=== PATIENT | male | born 1940 | race Hispanic/Latino ===

== ENCOUNTER 2020-01-08 16:25 | Inpatient (IN) | payer MEDICARE, OTHER ==
[~2020-01-08] VITALS: Ht 165.1 cm; Wt 90.3 kg
[2020-01-08] MEDS: SODIUM CHLORIDE 0.9% 1000ML 1,000 ML IV SCH (00:15)
[2020-01-08] MEDS ORDERED: ONDANSETRON HCL INJ 2MG/ML 2ML 2 MG/ML VIAL IV PRN ×2 (17:15→19:45)
[2020-01-08] MEDS ORDERED: MORPHINE SULFATE 2 MG/ML SYR 1ML IV PRN (17:15)
[2020-01-08] MEDS ORDERED: SODIUM CHLORIDE 0.9% 1000ML 1,000 ML IV SCH (17:15)
[2020-01-08 17:19] LABS: BASOPHILS % 0.3 % (0.0-1.0); EOSINOPHILS # (AUTO) 0.5 (0.0-0.4); EOSINOPHILS % 3.5 % (0.0-6.0); HEMATOCRIT 32.9 % (38.2-49.6); HEMOGLOBIN 10.6 g/dL (14.0-18.0); LYMPHOCYTES # (AUTO) 0.5 (1.0-3.2); LYMPHOCYTES % 3.5 % (18.0-39.1); MEAN CORPUSCULAR HEMOGLOBIN 26.6 pg (28-32); MEAN CORPUSCULAR HGB CONC 32.2 g/dL (31-35); MEAN CORPUSCULAR VOLUME 82.5 fL (81-99); MONOCYTES # (AUTO) 0.8 (0.2-0.8); MONOCYTES % 5.9 % (4.4-11.3); NEUTROPHILS # (AUTO) 12.1 (2.1-6.9); NEUTROPHILS % 86.3 % (38.7-80.0); PLATELET COUNT 315 x10e3/uL (140-360); RED BLOOD COUNT 3.99 x10e6/uL (4.3-5.7); RED CELL DISTRIBUTION WIDTH 14.7 % (11.7-14.4)
[2020-01-08 17:30] LABS: INR 1.05; PROTHROMBIN TIME 14.4 seconds (11.9-14.5)
[2020-01-08 17:40] LABS: ALBUMIN 3.2 g/dL (3.5-5.0); ANION GAP 15.9 mmol/L (8-16); CALCIUM 9.5 mg/dL (8.4-10.2); CREATININE, SERUM 2.32 mg/dL (0.72-1.25)
[2020-01-08 17:41] LABS: CHOL/HDL RATIO 3.2 (3.9-4.7)
[2020-01-08 17:43] LABS: POTASSIUM 5.9 mmol/L (3.5-5.1)
[2020-01-08 18:01] LABS: THYROID STIMULATING HORMONE 1.534 uIU/mL (0.350-4.940)
[2020-01-08] MEDS: CEFTRIAXONE SOD 1 GM/NS 50 ML 50 ML IV SCH (18:04)
[2020-01-08] MEDS ORDERED: MORPHINE SULFATE INJ 4 MG/ML INJ 1ML IV PRN (18:15)
--- NOTE | 2020-01-08 18:20 | Diagnostic Imaging Report ---
EXAMINATION: CHEST 2 VIEWS COMPARISON: None INDICATION: ^SWELLING ^[id number] ^1743 ^Y DISCUSSION: HEART AND MEDIASTINUM: The cardiomediastinal silhouette is unremarkable. LINES: None. LUNGS/PLEURA: Mild hyperinflation suggestive of small airways disease. There is a moderate-sized left pleural effusion tracking superiorly suggestive of chronicity. No mass or infiltrate in the aerated lung. BONES AND SOFT TISSUES: Degenerative changes of the thoracic spine. No focal osseous lesion. The soft tissues are normal. IMPRESSION: Moderate sized left pleural effusion may be chronic. No pulmonary infiltrates. Signed by: Dr. Olga Samano MD on 01/08/2020 6:17 PM
--- NOTE | 2020-01-08 18:24 | Diagnostic Imaging Report ---
Right complete knee. CPT CODE: 21331. INDICATION: ^SWELLING ^[id number] ^1743 ^Y COMPARISON: None FINDINGS: No evidence of acute fracture or dislocation. Mild medial compartment narrowing and prominence of the tibial spines. Trace chondrocalcinosis of the medial lateral menisci. No joint effusion. Large traction enthesophytes arising from the superior patellar pole and the anterior tibia. There are calcifications of the prepatellar bursa and the infrapatellar bursa. Diffuse arterial calcifications. IMPRESSION: No acute traumatic pathology. Degenerative changes and bursal calcifications as described above. Signed by: Dr. Olga Samano MD on 01/08/2020 6:20 PM
--- NOTE | 2020-01-08 18:28 | Diagnostic Imaging Report ---
Foot complete CPT code: 05911 Indication: Cellulitis/gout ^SWELLING ^[id number] ^1743 ^Y Technique: A.P., oblique and lateral views of the right foot obtained. Comparison: None Findings: The area of pain is at the great toe. The bones are diffusely demineralized. Calcaneus is intact with small posterior and plantar spurs. The midfoot is intact. No evidence of displaced fracture or dislocation involving any of the digits.There is soft tissue swelling at the IP joint of the great toe. Sharply marginated erosion at the medial base of the proximal phalanx of the great toe. No radiopaque foreign body. There are diffuse calcifications of the arterial structures. IMPRESSION: 1. Soft tissue swelling at the MTP of the great toe with sharply marginated erosion of the proximal phalanx of the great toe may be secondary to gout. 2. Diffuse vascular calcifications. No acute fracture or dislocation. Signed by: Dr. Olga Samano MD on 01/08/2020 6:24 PM
[2020-01-08] MEDS ORDERED: DOCUSATE SODIUM 100 MG CAP PO PRN (19:45)
[2020-01-08] MEDS ORDERED: ACETAMINOPHEN 325 MG TAB PO PRN (19:45)
[2020-01-08] MEDS ORDERED: BENZONATATE 100 MG CAP PO PRN (19:45)
[2020-01-08] MEDS ORDERED: HYDROCODONE/APAP 5MG-325MG TAB PO PRN (19:45)
[2020-01-08] MEDS ORDERED: MELATONIN 5 MG TABLET PO PRN (19:45)
[2020-01-08 20:00] VITALS: BP 149/52
[2020-01-08] MEDS ORDERED: FUROSEMIDE INJ 10 MG/ML 4 ML VIAL IV ONE (20:00)
[2020-01-08] MEDS: FUROSEMIDE INJ 10 MG/ML 4 ML VIAL IV SCH (20:44)
[2020-01-08] MEDS ORDERED: SOD POLYSTYRENE SULFONATE SUSP 15 GM/60 ML BTL PO SCH (20:45)
[2020-01-08] MEDS ORDERED: VANCOMYCIN 1GM/NS 250 ML 250 ML IV ONE (20:45)
[2020-01-08 20:57] VITALS: BP_SYST 149; BP_SYST 176; BP_DIAS 52; BP_DIAS 62
[2020-01-08] MEDS ORDERED: DEXTROSE 50% SYRINGE 50 ML IV PRN (22:00)
[2020-01-08] MEDS ORDERED: TYLENOL WITH C1 EACH PO (22:21)
[2020-01-08] MEDS ORDERED: ALLOPURINOL300 MG PO (22:21)
[2020-01-08] MEDS ORDERED: AMLODIPINE BESY10 MG PO (22:21)
[2020-01-08] MEDS ORDERED: FLOMAX0.4 MG PO (22:21)
[2020-01-08] MEDS ORDERED: SYNTHROID50 MCG PO (22:21)
[2020-01-08] MEDS ORDERED: COLCRYS0.6 MG PO (22:21)
[2020-01-08] MEDS ORDERED: ZOLOFT50 MG (22:21)
[2020-01-08] MEDS ORDERED: METFORMIN HCL500 MG PO (22:21)
[2020-01-08] MEDS ORDERED: FERROUS SULFAT325 MG (22:21)
[2020-01-08] MEDS ORDERED: BACTRIM DS TAB1 EACH PO (22:21)
[2020-01-08] MEDS ORDERED: NEPHRO-VITE TABL1 EA PO (22:21)
[2020-01-08] MEDS ORDERED: PLAVIX75 MG PO (22:21)
[2020-01-08] MEDS ORDERED: INDOMETHACIN50 MG PO (22:21)
[2020-01-08] MEDS ORDERED: GLIMEPIRIDE2 MG PO (22:21)
[2020-01-08] MEDS ORDERED: VOLTAREN100 GM TD (22:21)
[2020-01-08] MEDS ORDERED: LISINOPRIL10 MG PO (22:21)
[2020-01-08] MEDS ORDERED: HYDRALAZINE HCL25 MG PO (22:21)
[2020-01-08] MEDS ORDERED: SIMVASTATIN20 MG PO (22:21)
[2020-01-08] MEDS: COLCHICINE 0.6 MG TAB PO SCH (22:25)
[2020-01-08] MEDS: METHYLPREDNISOLONE SOD SUCC 125 MG/2ML VIAL IV SCH (22:25)
--- NOTE | 2020-01-08 22:38 | History and Physical ---
CHIEF COMPLAINT: Right knee swelling x2 weeks. HISTORY OF PRESENT ILLNESS: A 79-year-old male was sent in by his primary care physician due to worsening right knee swelling, ongoing for the last 2 weeks. The patient is a very poor historian. He reports that suddenly he complained of right knee pain and swelling, went to his PCP and apparently he was doing some right knee aspiration. Apparently, it continued to get worse. According to the PCP, in which I spoke with him over the phone that his cultures for his aspiration was found to be negative. He does have a history of hyperuricemia in the past. He did take some colchicine with no result. He was also on oral antibiotics with no result. He denies any fever. The patient was seen and evaluated at bedside on the medical floor. He is currently doing well with no other issues at this time. The patient again is a very poor historian. I am unable to obtain the full information by the patient at bedside despite using a theology teacher. REVIEW OF SYSTEMS: Pertinent positive; right knee swelling x2 weeks. The rest of the 14-point review of systems are reviewed with the patient and are negative. ALLERGIES: NO KNOWN DRUG ALLERGIES. HOME MEDICATIONS: None available at this time. PAST MEDICAL HISTORY: History of hyperuricemia. PAST SURGICAL HISTORY: Reports none. FAMILY HISTORY: Hypertension and diabetes. SOCIAL HISTORY: No drugs. No alcohol. Does not smoke. Good social support. PHYSICAL EXAMINATION: VITAL SIGNS: Temperature is 98.8, pulse 64, respiratory rate is 18, blood pressure 150/46, pulse ox 98% on room air. GENERAL: No acute distress. Alert and oriented x3. Cooperative on examination. HEENT: Head is normocephalic and atraumatic. Eyes; pupils are equal, round, and reactive to light bilaterally. Extraocular movements intact bilaterally. Throat; no evidence of any erythema or exudates in the posterior pharynx. Has poor dentition. NECK: Supple. Good range of motion. PULMONARY: Clear to auscultation bilaterally. No wheezing, rales, or rhonchi. No crackles appreciated. CARDIOVASCULAR: Positive S1 and S2. No murmurs, rubs, or gallops appreciated. ABDOMEN: Soft, nondistended, nontender to palpation. Bowel sounds present. MUSCULOSKELETAL: Strength is 5/5 throughout. No evidence of any muscle deficits on examination. No weakness appreciated. SKIN: His right knee is very swollen, erythematic, tender to palpation. He also has a little area of a bump underneath the patella, but no evidence of any discharge. It is warm to touch and is very erythematic. EXTREMITIES: No edema. Good range of motion throughout. LABORATORY DATA: Labs show white count was 14, hemoglobin 10.6, hematocrit is 33, and platelets of 315. Coagulation; PT 14, INR 1.05, PTT 45. Chemistry; sodium 136, potassium 5.9, chloride 104, bicarb 22, anion gap of 15, BUN is 38, creatinine is 2.3, glucose 106, hemoglobin A1c 6.4, uric acid level 4.9, calcium 9.5, total bilirubin is 0.4, AST 19, ALT 17, alkaline phosphatase 74, total protein 6.5, albumin 3.2. Triglycerides 95, LDL 68, TSH is 1.53. SEROLOGY: His coronavirus PCR is pending. MICROBIOLOGY: His blood cultures are pending. IMAGING STUDIES: Chest x-ray shows a moderate-sized left pleural effusion, may be chronic, no pulmonary infiltrates appreciated. Foot x-ray shows soft tissue swelling in the MTP of the great toe of the right foot with sharply marginated erosion of the proximal phalanx of the great toe, may be secondary to gout. Diffuse vascular calcifications. No acute fracture or dislocation. Knee x-ray, no acute trauma pathology. Degenerative changes and bursal calcification as described above. Does not seem to show any evidence of any joint effusion. IMPRESSION: 1. Right knee swelling, concerning for underlying cellulitis, must rule out septic knee. 2. Hyperkalemia. 3. Chronic kidney disease stage 4, unknown baseline. 4. Pleural effusion, moderate in size. PLAN: At this time as for his right knee, I am going to go ahead and order an MRI of the knee without contrast, as he has underlying CKD unable to perform with contrast. He will be started on IV vancomycin and Rocephin. Blood cultures have been collected. Orthopedics and ID have been consulted. His uric acid levels 4.9, within range. As for his hyperkalemia, he is on IV diuretics for his hyperkalemia as well as his pulmonary edema. I do not know his baseline creatinine level in the office. We will go ahead and get a renal ultrasound. He is otherwise stable. He is breathing well with no complaints. I will add some pain control for him. I will hold off any steroids for now to avoid any worsening event in his right knee. We will just continue with antibiotics for the current moment. He is not an NSAID candidate at this time due to underlying renal failure. He will be on Lovenox for DVT prophylaxis and PT/OT for evaluation. Consultants; ID and Orthopedics at this time. MD KURTIS Bermudez/DANNY /[id number]
[2020-01-09] VITALS (9 sets, daily range): BP systolic 125–160; BP diastolic 47–71
[2020-01-09] MEDS: FUROSEMIDE INJ 10 MG/ML 4 ML VIAL IV SCH ×3 (00:14→12:22)
[2020-01-09] MEDS: COLCHICINE 0.6 MG TAB PO SCH ×2 (02:00→06:21)
[2020-01-09] MEDS: LEVOTHYROXINE SODIUM 50 MCG TAB PO SCH (06:21)
[2020-01-09] MEDS: METHYLPREDNISOLONE SOD SUCC 125 MG/2ML VIAL IV SCH ×3 (06:21→21:00)
[2020-01-09 06:47] LABS: BASOPHILS % 0.1 % (0.0-1.0); EOSINOPHILS % 0.4 % (0.0-6.0); HEMATOCRIT 34.2 % (38.2-49.6); HEMOGLOBIN 10.8 g/dL (14.0-18.0); LYMPHOCYTES # (AUTO) 0.4 (1.0-3.2); LYMPHOCYTES % 4.7 % (18.0-39.1); MEAN CORPUSCULAR HEMOGLOBIN 26.1 pg (28-32); MEAN CORPUSCULAR HGB CONC 31.6 g/dL (31-35); MEAN CORPUSCULAR VOLUME 82.6 fL (81-99); MONOCYTES # (AUTO) 0.1 (0.2-0.8); MONOCYTES % 0.9 % (4.4-11.3); NEUTROPHILS # (AUTO) 7.4 (2.1-6.9); NEUTROPHILS % 93.4 % (38.7-80.0); PLATELET COUNT 260 x10e3/uL (140-360); RED BLOOD COUNT 4.14 x10e6/uL (4.3-5.7); RED CELL DISTRIBUTION WIDTH 14.9 % (11.7-14.4)
[2020-01-09 07:32] LABS: ALBUMIN 3.1 g/dL (3.5-5.0); ANION GAP 18.8 mmol/L (8-16); CALCIUM 9.3 mg/dL (8.4-10.2); CREATININE, SERUM 2.07 mg/dL (0.72-1.25); POTASSIUM 4.8 mmol/L (3.5-5.1)
[2020-01-09] MEDS: SODIUM CHLORIDE 0.9% 1000ML 1,000 ML IV SCH (08:59)
[2020-01-09] MEDS: GLIMEPIRIDE 2 MG TAB PO SCH ×2 (08:59→17:35)
[2020-01-09] MEDS: INSULIN LISPRO 100 UNIT/1 ML 3ML VIAL SQ SCH ×4 (09:00→21:01)
[2020-01-09] MEDS: METFORMIN HCL 500 MG TAB CR PO SCH ×2 (09:00→17:36)
[2020-01-09] MEDS: AMLODIPINE BESYLATE 5 MG TAB PO SCH (09:01)
[2020-01-09] MEDS: ALLOPURINOL 300 MG TAB PO SCH (09:01)
[2020-01-09] MEDS: SERTRALINE HCL 50 MG TAB PO SCH (09:01)
[2020-01-09] MEDS: CLOPIDOGREL BISULFATE 75 MG TAB PO SCH (09:01)
[2020-01-09] MEDS: INDOMETHACIN 75 MG CAPCR PO SCH ×2 (12:24→17:36)
[2020-01-09 14:22] LABS: BODY FLUID APPEARANCE CLOUDY; BODY FLUID COLOR RED; BODY FLUID TYPE SYNOVIAL
[2020-01-09 15:13] LABS: LYMPHOCYTES,BODY FLUID 11 %; MONO/MACROPHG,BODY FLUID 7 %; NEUTROPHILS,BODY FLUID 82 %
[2020-01-09 15:15] LABS: RBC,BODY FLUID 23166 cells/uL; WBC,BODY FLUID 792 cells/uL
--- NOTE | 2020-01-09 15:56 | Consultation ---
DATE OF CONSULTATION: REASON FOR CONSULTATION: Infection of the knee. HISTORY OF PRESENT ILLNESS: This patient, who is a very pleasant 79-year-old male, comes in with 2 weeks of redness and swelling of his knee. The patient, who is a poor historian. Does not remember specific trauma. The patient was admitted. He was already seen by Orthopedic. The patient underwent arthrocentesis. I was asked to see him. The patient is currently lying in bed comfortably. PAST MEDICAL HISTORY: He thinks he may have gout and osteoarthritis. PAST SURGICAL HISTORY: Denies. ALLERGIES: NKA. SOCIAL HISTORY: There is no smoking, drug abuse, or alcohol abuse. FAMILY HISTORY: Noncontributory. PHYSICAL EXAMINATION: GENERAL: He is currently alert and oriented. Does not seem to be in acute distress. VITAL SIGNS: Stable, currently afebrile. HEENT: He is not icteric. NECK: Supple. CHEST: Clear. HEART: S1 and S2. No S3, S4, or murmurs. ABDOMEN: Soft. Bowel sounds present. No tenderness. EXTREMITIES: No edema. SKIN: No rash. IMPRESSION: 1. Right knee effusion, status post aspiration, was sent for cell count, diff, protein, glucose, and [employer]. 2. History of hypertension, on amlodipine. 3. History of depression, on Zoloft. The patient is also on Plavix. 4. History of diabetes mellitus with neuropathy. 5. History of hypothyroidism, possibility of gout. The patient currently on Rocephin and methylprednisolone. Agree with aspiration of the joint. Await studies. Orders were sent by ortho. We will follow up clinically. At the present time when I saw the patient, the knee, there is no redness, no swelling, no effusion that he just underwent aspiration of the joint. Further recommendations to follow. MD ALEX Zavala/DANNY /[id number]
--- NOTE | 2020-01-09 16:31 | Progress Note ---
DATE: 01/09/2020 Medicine Progress Note SUBJECTIVE: The patient is doing well today. He had his right knee aspiration, but small amount of fluid was aspirated by Orthopedics. I had a long discussion with Orthopedics. It is less likely that the patient has any kind of septic knee. We will wait for the final cultures and determine the next course of action, but it is less likely to be infected according to Orthopedics. We will go ahead and cancel the MRI of the right knee as per recommendations by Ortho. LABORATORY DATA: Labs show white count 7.9, hemoglobin 10.8, hematocrit is 34.2, platelets of 260. Coagulation PT 14, INR 1, PTT 45. Chemistry, sodium 140, potassium 4.8, chloride 106, bicarb 20, anion gap of 18. BUN is 34, creatinine is 2.07. Glucose is 171, uric acid 4.9. LFTs within normal range. Albumin 3.1. Aspiration fluid cultures are pending. MICROBIOLOGY: Blood cultures are pending. IMAGING STUDIES: Reviewed. PHYSICAL EXAMINATION: VITAL SIGNS: Temperature 98, pulse 58, respiratory rate is 18, blood pressure 144/47, pulse ox is 97% on room air. GENERAL: No acute distress. Alert and oriented x3. Cooperative on examination. HEENT: Head is normocephalic and atraumatic. Eyes; pupils are equal, round, and reactive to light bilaterally. PULMONARY: Clear to auscultation bilaterally. No wheezing, rales, or rhonchi. No crackles appreciated. CARDIOVASCULAR: Positive S1 and S2. No murmurs, rubs, or gallops appreciated. ABDOMEN: Soft, nondistended, nontender to palpation. Bowel sounds present. MUSCULOSKELETAL: Right knee erythema is much improved compared to yesterday. It is not as warm to touch anymore. The swelling has decreased as well. SKIN: Intact warm to touch. Good cap refill. PSYCHIATRIC: Normal affect and mood. EXTREMITIES: No edema. Good range of motion throughout. IMPRESSION: 1. Right knee swelling concerning for underlying cellulitis. 2. Hyperkalemia, resolved. 3. Chronic kidney disease, stage 4, unknown baseline. 4. Pleural effusion, moderate in size. PLAN: At this time, his right knee has been aspirated by Orthopedics. He does not feel like the patient has any kind of septic knee as the swelling has improved tremendously and now has less pain on exam. After further discussion with Ortho, MRI of the knee is not necessary in which we cancelled it. We will continue with IV antibiotics. We did send aspiration of the right knee for culture and analysis, which we will wait on that result. We cannot give him any NSAIDs due to his renal failure. If his aspiration comes back to be negative for any culture growth, we will consider some steroids. ID is also following. As for his pulmonary edema, Pulmonary has been consulted. We will continue with IV diuretics for now. He is on Lovenox for DVT prophylaxis. Encourage ambulation, PT/OT evaluation. CONSULTANTS: ID, Orthopedics, and Pulmonary. MD KURTIS Bermudez/DANNY /[id number]
[2020-01-09] MEDS: ENOXAPARIN SOD INJ 40 MG/0.4 ML SYR SC SCH (17:36)
[2020-01-09] MEDS: CEFTRIAXONE SOD 1 GM/NS 50 ML 50 ML IV SCH (17:36)
[2020-01-09] MEDS: TAMSULOSIN HCL 0.4 MG CAP PO SCH (21:00)
[2020-01-09] MEDS: SIMVASTATIN 20 MG TAB PO SCH (21:00)
[2020-01-10] VITALS (9 sets, daily range): BP systolic 125–178; BP diastolic 53–78
[2020-01-10] MEDS: SODIUM CHLORIDE 0.9% 1000ML 1,000 ML IV SCH ×3 (02:15→22:09)
[2020-01-10] MEDS: METHYLPREDNISOLONE SOD SUCC 125 MG/2ML VIAL IV SCH ×2 (05:47→13:30)
[2020-01-10] MEDS: LEVOTHYROXINE SODIUM 50 MCG TAB PO SCH (05:47)
[2020-01-10 06:23] LABS: EOSINOPHILS % 0.1 % (0.0-6.0); HEMATOCRIT 30.4 % (38.2-49.6); HEMOGLOBIN 9.7 g/dL (14.0-18.0); LYMPHOCYTES # (AUTO) 0.6 (1.0-3.2); LYMPHOCYTES % 4.9 % (18.0-39.1); MEAN CORPUSCULAR HEMOGLOBIN 26.3 pg (28-32); MEAN CORPUSCULAR HGB CONC 31.9 g/dL (31-35); MEAN CORPUSCULAR VOLUME 82.4 fL (81-99); MONOCYTES # (AUTO) 0.2 (0.2-0.8); MONOCYTES % 1.4 % (4.4-11.3); NEUTROPHILS # (AUTO) 10.7 (2.1-6.9); PLATELET COUNT 271 x10e3/uL (140-360); RED BLOOD COUNT 3.69 x10e6/uL (4.3-5.7); RED CELL DISTRIBUTION WIDTH 14.6 % (11.7-14.4)
[2020-01-10 06:29] LABS: ANION GAP 16.3 mmol/L (8-16); CALCIUM 8.6 mg/dL (8.4-10.2); POTASSIUM 4.3 mmol/L (3.5-5.1)
[2020-01-10] MEDS: INSULIN LISPRO 100 UNIT/1 ML 3ML VIAL SQ SCH ×4 (07:30→21:00)
[2020-01-10] MEDS: METFORMIN HCL 500 MG TAB CR PO SCH (08:04)
[2020-01-10] MEDS: CLOPIDOGREL BISULFATE 75 MG TAB PO SCH (08:04)
[2020-01-10] MEDS: ALLOPURINOL 300 MG TAB PO SCH (08:04)
[2020-01-10] MEDS: AMLODIPINE BESYLATE 5 MG TAB PO SCH (08:04)
[2020-01-10] MEDS: INDOMETHACIN 75 MG CAPCR PO SCH (08:04)
[2020-01-10] MEDS: GLIMEPIRIDE 2 MG TAB PO SCH ×2 (08:04→16:54)
[2020-01-10] MEDS: SERTRALINE HCL 50 MG TAB PO SCH (08:04)
[2020-01-10] MEDS ORDERED: VANCOMYCIN 1GM/NS 250 ML 250 ML IV ONE (11:15)
--- NOTE | 2020-01-10 11:59 | Progress Note ---
DATE: SUBJECTIVE: The patient is seen and evaluated. Available labs and notes reviewed. Discussed with the patient and discussed with Dr. Lozano. REVIEW OF SYSTEMS: Feels better. No nausea, vomiting, fever, chills, chest pain, or shortness of breath. Pain of the right first MP joint and right knee improved. PHYSICAL EXAMINATION: VITAL SIGNS: Temperature is 96.9, pulse 58, respirations 18, and blood pressure 125/56. GENERAL: Alert and oriented, very pleasant, in no acute distress. CV: S1, S2. CHEST: Equal expansion. Clear to auscultation. No acute distress. ABDOMEN: Soft and nontender. No distention. HEENT: Moist. No pallor. No JVD. EXTREMITIES: Right first MP joint still feels spongy, but not as red or swollen and is not as tender. Right knee is not as tender, the aspiration site is covered with a Band-Aid. No acute finding. No significant edema or tenderness. MEDICATIONS: Medication list reviewed. As far as Infectious Disease point of view, the patient is on Rocephin. LABORATORY STUDIES: White blood cells 11.49, higher than yesterday which was 7.9, hemoglobin is 9.7, platelet 271. Sodium 145, potassium 4.3, creatinine is 2, which has improved from 2.32 on admission. COVID-19 PCR pending from 01/08/2020. Body fluid culture, Gram stain showed to be cloudy, red in color, 82 of neutrophils, 11 of lymphocytes, 7 of monocytes with a white count of 792. MICROBIOLOGY: Blood culture 01/08/2020, negative. Body fluid negative on Gram stain with culture pending from 01/09/2020, which is aspirate culture from the patient's right knee. ASSESSMENT AND PLAN: 1. Right knee effusion, status post aspiration. Cultures as mentioned above. 2. Hypertension. 3. Depression. 4. Debility. 5. Diabetes. 6. Hypothyroidism. 7. We will follow with you. Follow culture results. He remains on Rocephin. Continue to monitor the patient clinically. We will follow up with the labs. The patient is cleared by Ortho to follow up with Dr. English in [address] Lozano in details. Please refer to chart for more information. Dictated by Ventura Membreno PA-C (Al) MD SASKIA Zavala/DANNY /[id number]
--- NOTE | 2020-01-10 16:25 | Progress Note ---
DATE: 01/10/2020 Medicine Progress Note SUBJECTIVE: The patient is doing very well today. He was sitting at the edge of the bed and a chair with no issues. He is able to move his right leg and knee. He actually ambulated with physical therapy as well with no issues. He reports feeling better. There is no evidence of any erythema or warmth to that right knee. PHYSICAL EXAMINATION: VITAL SIGNS: Temperature is 96.5, pulse 62, respiratory rate is 20, blood pressure 125/56, and pulse ox 97% on room air. GENERAL: Not in acute distress. Alert and oriented x3. Cooperative on examination. PULMONARY: Clear to auscultation bilaterally. No wheezing, no rales, no rhonchi, no crackles appreciated. CARDIOVASCULAR: Positive S1 and S2. No murmurs, rubs, or gallops appreciated. ABDOMEN: Soft, nondistended, and nontender to palpation. Bowel sounds present. MUSCULOSKELETAL: Strength is 5/5 throughout. No evidence of any muscle deficits on examination. No weakness appreciated. NEUROLOGIC: Cranial nerves 2 through 12 grossly intact. No evidence of any neurological deficits on exam. SKIN: Intact. Warm to touch. Good cap refill. PSYCHIATRIC: Normal affect and mood. EXTREMITIES: No erythema or warmth to the right knee. He is feeling much better. He is currently on steroids. LABORATORY DATA: Show white count 11.4, hemoglobin 9.7, hematocrit is 30, and platelets of 271. Chemistry reviewed; sodium 145, potassium 4.3, chloride 110, bicarb 23, anion gap of 16, BUN is 39, and creatinine is 2. Point of care glucose is 242. Calcium is 8.6. Analysis of the right knee aspiration shows 792 wbc's, rbc's 23,166, total count is 100, fluid neutrophil was 82, lymphocytes was 11, monocytes was 7. Coronavirus PCR was negative. MICROBIOLOGY: Blood cultures were no growth to date. Aspiration of the right knee shows no growth. IMAGING STUDIES: None. IMPRESSION: 1. Right knee swelling secondary to underlying cellulitis, ruled out septic right knee. 2. Hyperkalemia, resolved. 3. Chronic kidney disease, stage 4. 4. Pleural effusion, moderate in size, improving. PLAN: At this time, the right knee culture aspirate shows no growth to date. This is likely to be history of hyperuricemia more likely. He has improved tremendously. No further orthopedic workup is needed. Continue with IV antibiotics. He is on IV steroids and ID is following. We will continue to follow very closely. Get a chest x-ray in the morning and a.m. labs. Lovenox for DVT prophylaxis. Encourage ambulation. MD KURTIS Bermudez/DANNY /[id number]
[2020-01-10] MEDS: CEFTRIAXONE SOD 1 GM/NS 50 ML 50 ML IV SCH (16:54)
[2020-01-10] MEDS: ENOXAPARIN SOD INJ 40 MG/0.4 ML SYR SC SCH (16:54)
[2020-01-10] MEDS: TAMSULOSIN HCL 0.4 MG CAP PO SCH (19:34)
[2020-01-10] MEDS: SIMVASTATIN 20 MG TAB PO SCH (19:34)
[2020-01-10] MEDS: METHYLPREDNISOLONE SOD SUCC 40 MG/ML VIAL 1ML IV SCH (19:34)
[2020-01-11] VITALS (8 sets, daily range): BP systolic 137–157; BP diastolic 43–60
[2020-01-11] MEDS: LEVOTHYROXINE SODIUM 50 MCG TAB PO SCH (05:35)
[2020-01-11 06:01] LABS: BASOPHILS % 0.1 % (0.0-1.0); HEMATOCRIT 27.5 % (38.2-49.6); HEMOGLOBIN 8.6 g/dL (14.0-18.0); LYMPHOCYTES # (AUTO) 0.5 (1.0-3.2); LYMPHOCYTES % 4.5 % (18.0-39.1); MEAN CORPUSCULAR HEMOGLOBIN 25.5 pg (28-32); MEAN CORPUSCULAR HGB CONC 31.3 g/dL (31-35); MEAN CORPUSCULAR VOLUME 81.6 fL (81-99); MONOCYTES # (AUTO) 0.2 (0.2-0.8); MONOCYTES % 1.8 % (4.4-11.3); NEUTROPHILS % 93.1 % (38.7-80.0); PLATELET COUNT 256 x10e3/uL (140-360); RED BLOOD COUNT 3.37 x10e6/uL (4.3-5.7); RED CELL DISTRIBUTION WIDTH 14.4 % (11.7-14.4)
[2020-01-11 06:19] LABS: ANION GAP 12.2 mmol/L (8-16); CALCIUM 7.8 mg/dL (8.4-10.2); CREATININE, SERUM 1.48 mg/dL (0.72-1.25); POTASSIUM 4.2 mmol/L (3.5-5.1)
[2020-01-11] MEDS: INSULIN LISPRO 100 UNIT/1 ML 3ML VIAL SQ SCH ×4 (07:30→21:00)
[2020-01-11] MEDS: ALLOPURINOL 300 MG TAB PO SCH (08:13)
[2020-01-11] MEDS: SERTRALINE HCL 50 MG TAB PO SCH (08:13)
[2020-01-11] MEDS: CLOPIDOGREL BISULFATE 75 MG TAB PO SCH (08:13)
[2020-01-11] MEDS: AMLODIPINE BESYLATE 5 MG TAB PO SCH (08:13)
[2020-01-11] MEDS: METHYLPREDNISOLONE SOD SUCC 40 MG/ML VIAL 1ML IV SCH ×2 (08:13→21:20)
[2020-01-11] MEDS: GLIMEPIRIDE 2 MG TAB PO SCH ×2 (08:14→16:16)
[2020-01-11] MEDS: SODIUM CHLORIDE 0.9% 1000ML 1,000 ML IV SCH (08:45)
[2020-01-11 09:00] LABS: ELLIPTOCYTE, RBC SLIGHT; LYMPHOCYTES % (MANUAL) 4 % (19-48); MONOCYTES % (MANUAL) 1 % (3.4-9.0); NEUTROPHILS % (MANUAL) 95 % (40-74)
[2020-01-11 09:01] LABS: OVALOCYTES FEW
[2020-01-11 09:04] LABS: PLATELET ESTIMATE ADEQUATE; PLATELET MORPHOLOGY COMMENT NORMAL; RBC MORPHOLOGY COMMENT NORMAL
--- NOTE | 2020-01-11 12:44 | Progress Note ---
DATE: SUBJECTIVE: The patient seen evaluated with the nurse in the room. No new complaints. REVIEW OF SYSTEMS: No nausea, vomiting, fever, chills, chest pain, shortness of breath, headache, dysuria, polyuria, rash, or cough. OBJECTIVE: VITAL SIGNS: Temperature 97.4, pulse is 60, respiration 18, and blood pressure 150/43. MEDICATIONS: Medication list reviewed. As far as Infectious Disease point of view the patient is on Rocephin. The patient has a chronic care renal insufficiency, was given another dose of vancomycin IV yesterday. BODY AFTER ALLERGIES: LABORATORY STUDIES: White count is 10.74 improved from 11.49, hemoglobin 8.6, platelet 256,000. Sodium 143, potassium 4.2, creatinine 1.48. Serology: COVID-19 PCR not reactive 01/08/2020. Microbiology: Blood culture negative 01/08/2020, positive fluid from the knee aspiration showed no organisms on the Gram stain with the culture negative 24 hours so far. There is no aspiration from the foot area. IMAGING: No new radiology studies available. PHYSICAL EXAMINATION: GENERAL: Alert and oriented, ambulatory with the use of four-pointed walker, alert and oriented, in no acute distress. CV: S1-S2. CHEST: Equal expansion, clear to auscultation. No acute distress. ABDOMEN: Soft and nontender. No distention. HEENT: Moist. No pallor. No JVD. EXTREMITIES: Right knee pain has improved. No significant edema or erythema. The aspiration site is dressed. His right foot 1st MTP joint still with swelling and spongy feeling, but not as tender. Also proximal anterior tib-fib area swelling is not draining and does not seem to be tender. ASSESSMENT AND PLAN: 1. Right knee effusion, status post aspiration. Cultures negative so far. 2. Swelling of the right 1st MTP joint with a concern of gout on Radiology studies. 3. Hypertension. 4. Debility-multifactorial. 5. Diabetes. 6. Depression. 7. Hypothyroidism. 8. There is no further orthopedic workup planned. The patient is supposed to have a chest x-ray today per Internal Medicine note. We will follow up with the patient clinically and monitor his progress. Discussed with Dr. Lozano in details. Please refer to chart for more information. MD ALEX Zavala/DANNY /[id number]
[2020-01-11] MEDS ORDERED: ONDANSETRON HCL 4 MG ORAL DISINTEGRATING TAB PO PRN (15:15)
--- NOTE | 2020-01-11 15:31 | Diagnostic Imaging Report ---
EXAMINATION: CHEST SINGLE (PORTABLE) INDICATION: Pulmonary edema COMPARISON: Chest radiograph 01/08/2020 FINDINGS: LINES/TUBES:EKG leads overlie the chest. LUNGS:The right lung is well-inflated. Left lung is moderately inflated. Unchanged left basilar opacities. PLEURA:Unchanged left pleural effusion. No pneumothorax. MEDIASTINUM:The cardiomediastinal silhouette appears unchanged in size and shape. BONES/SOFT TISSUES:No acute osseous injury. ABDOMEN:No free air under the diaphragm. IMPRESSION: Unchanged left pleural effusion and left basilar opacities, most likely subsegmental atelectasis. Signed by: Daryn Solorio MD on 01/11/2020 3:27 PM
--- NOTE | 2020-01-11 15:39 | Progress Note ---
DATE: 01/11/2020 SUBJECTIVE: The patient is doing very well today with no complaints. He was actually ambulating in the room with his walker. He has no pain to the right knee. PHYSICAL EXAMINATION: VITAL SIGNS: Temperature is 97.5, pulse 54, respiratory rate 20, blood pressure 114/59, and pulse ox 98% on room air. GENERAL: Not in acute distress, alert and oriented x3. Cooperative on examination. HEENT: Head is normocephalic, atraumatic. Eyes; pupils are reactive to light bilaterally. Extraocular movements intact bilaterally. Throat; no evidence of erythema or exudates in the posterior pharynx. Has poor dentition. NECK: Supple. Good range of motion. PULMONARY: Clear to auscultation bilaterally. No wheezing, no rales, no rhonchi, no crackles appreciated. CARDIOVASCULAR: Positive S1 and S2. No murmurs, rubs, or gallops appreciated. ABDOMEN: Soft, nondistended, and nontender to palpation. Bowel sounds present. MUSCULOSKELETAL: Strength is 5/5 throughout. No evidence of any muscle deficits on examination. SKIN: Intact, warm to touch. Good cap refill. PSYCHIATRIC: Normal affect and mood. EXTREMITIES: No edema. Good range of motion throughout. LABORATORY DATA: Labs show white count 10.7, hemoglobin 8.6, hematocrit 27.5, and platelets of 256. Chemistry; reviewed shows creatinine is 1.48 downtrending. BUN is 37. MICROBIOLOGY: Aspiration of the right knee shows no growth. Blood cultures, no growth. IMPRESSION: 1. Right knee swelling, secondary to cellulitis, septic right knee was ruled out. 2. Hyperkalemia, resolved. 3. Chronic kidney disease, stage 3. 4. Pleural effusion, moderate in size, that improved. PLAN: At this time all cultures have been negative. Continue with IV antibiotics and steroids. We will discharge tomorrow on oral antibiotics per ID recommendations. Also, discharged on oral steroids. I will get a chest x-ray now, currently was not done this morning. Lovenox for deep venous thrombosis prophylaxis. Continue with same plan of care. Follow consultants recommendations. Encourage ambulation. MD KURTIS Bermudez/MODL /[id number]
[2020-01-11] MEDS: ENOXAPARIN SOD INJ 40 MG/0.4 ML SYR SC SCH (16:16)
[2020-01-11] MEDS: CEFTRIAXONE SOD 1 GM/NS 50 ML 50 ML IV SCH (16:16)
[2020-01-11] MEDS: TAMSULOSIN HCL 0.4 MG CAP PO SCH (21:20)
[2020-01-11] MEDS: SIMVASTATIN 20 MG TAB PO SCH (21:20)
[2020-01-12] VITALS (8 sets, daily range): BP systolic 158–213; BP diastolic 51–87
[2020-01-12 06:10] LABS: EOSINOPHILS % 0.1 % (0.0-6.0); HEMATOCRIT 29.2 % (38.2-49.6); HEMOGLOBIN 9.3 g/dL (14.0-18.0); LYMPHOCYTES # (AUTO) 0.4 (1.0-3.2); MEAN CORPUSCULAR HEMOGLOBIN 25.8 pg (28-32); MEAN CORPUSCULAR HGB CONC 31.8 g/dL (31-35); MEAN CORPUSCULAR VOLUME 81.1 fL (81-99); MONOCYTES # (AUTO) 0.2 (0.2-0.8); MONOCYTES % 1.7 % (4.4-11.3); NEUTROPHILS # (AUTO) 8.2 (2.1-6.9); NEUTROPHILS % 92.6 % (38.7-80.0); PLATELET COUNT 259 x10e3/uL (140-360); RED CELL DISTRIBUTION WIDTH 14.3 % (11.7-14.4)
[2020-01-12] MEDS: LEVOTHYROXINE SODIUM 50 MCG TAB PO SCH (06:18)
[2020-01-12 06:40] LABS: ANION GAP 9.3 mmol/L (8-16); BLOOD UREA NITROGEN 27 mg/dL (7-26); BUN/CREATININE RATIO 25 (6-25); CALCIUM 8.1 mg/dL (8.4-10.2); CARBON DIOXIDE 24 mmol/L (22-29); CHLORIDE 112 mmol/L (98-107); CREATININE, SERUM 1.09 mg/dL (0.72-1.25); EST GLOMERULAR FILTRATION RATE > 60 ML/MIN (60-); GLUCOSE 151 mg/dL (74-118); POTASSIUM 4.3 mmol/L (3.5-5.1); SODIUM 141 mmol/L (136-145)
[2020-01-12 07:39] LABS: LYMPHOCYTES % (MANUAL) 3 % (19-48); MONOCYTES % (MANUAL) 1 % (3.4-9.0); NEUTROPHILS % (MANUAL) 96 % (40-74); PLATELET ESTIMATE ADEQUATE; PLATELET MORPHOLOGY COMMENT NORMAL; RBC MORPHOLOGY COMMENT NORMAL
[2020-01-12] MEDS: INSULIN LISPRO 100 UNIT/1 ML 3ML VIAL SQ SCH ×3 (08:20→17:44)
[2020-01-12] MEDS: CLOPIDOGREL BISULFATE 75 MG TAB PO SCH (08:44)
[2020-01-12] MEDS: SERTRALINE HCL 50 MG TAB PO SCH (08:44)
[2020-01-12] MEDS: ALLOPURINOL 300 MG TAB PO SCH (08:44)
[2020-01-12] MEDS: GLIMEPIRIDE 2 MG TAB PO SCH ×2 (08:44→17:05)
[2020-01-12] MEDS: METHYLPREDNISOLONE SOD SUCC 40 MG/ML VIAL 1ML IV SCH (08:44)
[2020-01-12] MEDS: AMLODIPINE BESYLATE 5 MG TAB PO SCH (08:44)
[2020-01-12] MEDS: HYDRALAZINE HCL 20 MG/ML VIAL IV PRN ×2 (11:40→18:07)
--- NOTE | 2020-01-12 12:23 | Progress Note ---
DATE: SUBJECTIVE: The patient is evaluated, available labs and notes reviewed. Discussed with the patient. REVIEW OF SYSTEMS: The pain of the right knee improve significantly. No nausea, vomiting, fever, chills, chest pain, shortness of breath, headache, history of polyuria, rash, or cough. OBJECTIVE: VITAL SIGNS: Temperature 97.4, pulse is 58, respirations 17, and blood pressure 183/75. GENERAL: Alert and oriented, in no acute distress. Ambulates with the use of 4-pointed walker. CV: S1, S2. CHEST: Equal expansion, clear to auscultation. No acute distress. ABDOMEN: Soft and nontender. No distention. HEENT: Moist. No pallor. No JVD. EXTREMITIES: Right knee, no significant edema or erythema. Proximal anterior tib-fib area. Nodule no significant change. Also, right 1st MTP joint edema is not as tender. MEDICATIONS: Medication list reviewed, as far as Infectious Disease point of view the patient is on Solu-Medrol 40 mg IV q.12 hours, Rocephin IV daily. The patient also had 1 g of vancomycin on 01/10/2020. LABORATORY STUDIES: White count of 8.81, hemoglobin 9.3, and platelet 259. Sodium 141, potassium 4.3. Creatinine 1.09. SEROLOGY: Coronavirus PCR 01/08/2020, negative. MICROBIOLOGY: Blood culture negative on 01/08/2020. Body fluid 01/09/2020 negative after 3 days. RADIOLOGY STUDIES: On 01/11/2020, showed unchanged left pleural effusion and left basilar opacities, most likely subsegmental atelectasis. ASSESSMENT AND PLAN: 1. Right knee effusion, status post aspiration with culture negative so far. 2. Right 1st MTP joint swelling with concern of gout on Radiology. 3. Debility-multifactorial. 4. Diabetes. 5. Hypertension. 6. Depression. 7. Hypothyroidism. The patient is on antibiotics as mentioned above, discharge planning noted discussed with attending yesterday. Please refer to chart for more information. Further management of this patient is based on daily findings on laboratory and physical examination. Discussed with Blake in detail. Dictated by Ventura Membreno PA-C (Al) Malick Lozano MD /MODL /[id number]
[2020-01-12] MEDS: HYDRALAZINE HCL 25 MG TAB PO SCH ×2 (13:31→17:05)
[2020-01-12] MEDS ORDERED: FUROSEMIDE INJ 10 MG/ML 4 ML VIAL IV ONE (14:15)
[2020-01-12] MEDS: ENOXAPARIN SOD INJ 40 MG/0.4 ML SYR SC SCH (17:00)
[2020-01-12] MEDS: CEFTRIAXONE SOD 1 GM/NS 50 ML 50 ML IV SCH (17:15)
--- NOTE | 2020-01-13 00:49 | Discharge Summary ---
FINAL DISCHARGE DIAGNOSES: 1. Right knee cellulitis with no evidence of any septic knee ruled out found to be negative. 2. Acute kidney injury with hyperkalemia secondary to dehydration, resolved. 3. Chronic kidney disease, stage 3. 4. Pleural effusion, improved. CONSULTANTS: Orthopedics, ID, and Pulmonary. PHYSICAL EXAMINATION: VITAL SIGNS: Temperature is 97.4, pulse 65 respiratory rate is 19, blood pressure is 163/51, pulse ox 99% on room air. LABORATORY DATA: Labs show white count 8.8, hemoglobin 9.3, hematocrit 29, platelets of 259. Coagulation; PT 14, INR 1.05, PTT 45. Chemistry; sodium 141, potassium 4.3, chloride 112, bicarb 24, anion gap of 9.3, BUN is 27, creatinine is 1.09, glucose 151. Hemoglobin A1c is 6.4, calcium is 8.1, total bilirubin is 0.4, AST 21, ALT 20, alkaline phosphatase 84, total protein 6.3, LDL 68, TSH 1.5, triglycerides 95. Aspiration of the right knee shows no growth. Serology, coronavirus PCR is negative. Microbiology, again right knee aspiration shows no organisms, no growth. Blood cultures were negative x2. IMAGING STUDIES: Chest x-ray shows initially showed a moderate-sized left-sided pleural effusion, but no evidence of pulmonary infiltrates. Foot x-ray shows some evidence of soft tissue swelling at the MTP of the of the great toe, which showed a marginated erosion of the proximal phalanx of the great toe, may be secondary to gout. Diffuse vascular calcification. No acute fracture or dislocation. Knee x-ray shows no acute trauma pathology. Degenerative changes in bursal calcification as described above. A repeat chest x-ray shows some evidence of left pleural effusion with left basilar opacity. It shows some evidence of atelectasis. HOSPITAL COURSE: This is a 79-year-old male, comes in as a direct admission due to right knee swelling concerning for underlying septic joint. Orthopedics was consulted. The patient had underlying right knee aspiration performed by Orthopedics with aspiration culture showing to be negative. I spoke with Orthopedics personally and they recommended no MRI, that it is less likely to be septic knee. The cultures of the aspiration were found to be negative and at that time Orthopedics initiated on some steroids with much improvement. He also had some underlying cellulitis around the right knee in which he was on IV antibiotics and ID was consulted. All cultures were found to be negative. He was eventually discharged on oral doxycycline as per recommendations by ID. He had some evidence of pleural effusion, for which he required IV diuretics with much improvement. He was breathing well on room air. No evidence of any shortness of breath or any respiratory distress. The patient was doing well with no other complaints. I spoke with all consultants and they all cleared the patient for discharge to home. On the day of discharge, vital signs were stable, labs reviewed and stable. The patient is seen and evaluated and examined thoroughly on the day of discharge. No other complaints. The patient verbalized understanding and agrees to plan of care to follow up accordingly as an outpatient with the primary care physician in 1 week, Orthopedics and ID in 2 weeks' time and Pulmonary one week time. When I spoke with Orthopedics, there was no evidence of any septic knee and the patient improved throughout the hospital course with no evidence of any erythema. He was ambulating, was able to bend the knee. There was no evidence of any effusion and he was cleared for discharge by all consultants. MEDICATIONS: See med reconciliation form. DISPOSITION: Home. CONDITION: Stable. DIET: Heart healthy. In the event of any worsening symptoms, the patient was advised to come back to the ED for further evaluation. Discharge summary took greater than 35 minutes. MD KURTIS Bermudez/DANNY /[id number]
== END 2020-01-12 18:42 | disposition home or self-care (01) | DRG 558 ==
LOC: ER 16:25 → ERHOLD 17:01 → MED/SURG3 19:05
PROVIDERS: ADMIT Internal Medicine; ATTEND Internal Medicine
PROC: 0S9C3ZX Drainage of Right Knee Joint, Percutaneous Approach, Diagnostic (ICD-10-PCS; principal; 2020-01-09)
DX: M70.51 Other bursitis of knee, right knee (principal); L03.115 Cellulitis of right lower limb; J90 Pleural effusion, not elsewhere classified; N17.9 Acute kidney failure, unspecified; E87.5 Hyperkalemia; I12.9 Hypertensive chronic kidney disease with stage 1 through stage 4 chronic kidney disease, or unspecified chronic kidney disease; E11.22 Type 2 diabetes mellitus with diabetic chronic kidney disease; E11.42 Type 2 diabetes mellitus with diabetic polyneuropathy; E03.9 Hypothyroidism, unspecified; M10.9 Gout, unspecified; M65.261 Calcific tendinitis, right lower leg; E86.0 Dehydration; N18.3 Chronic kidney disease, stage 3 (moderate); F32.9 Major depressive disorder, single episode, unspecified; R53.81 Other malaise; Z79.84 Long term (current) use of oral hypoglycemic drugs
CPT/HCPCS: 36415; 71045; 71046; 80048; 80053; 80061; 82948; 83036; 84132; 84443; 84550; 85025; 85610; 85651; 85730; 86140; 87040; 87070; 87071; 87075; 87205; 87635; 89051; 89060; 97139; 99284; J0360; J0696; J1650; J1940; J2270; J2405; J2920; J2930; J3370; J7030

== ENCOUNTER 2020-09-26 09:45 | Emergency (ER) | payer MEDICARE, OTHER ==
[~2020-09-26] VITALS: Ht 165.1 cm; Wt 90.3 kg
[~2020-09-26 09:45] MED LIST: ALLOPURINOL300 MG PO; AMLODIPINE BESY10 MG PO; BACTRIM DS TAB1 EACH PO; COLCRYS0.6 MG PO; FERROUS SULFAT325 MG; FLOMAX0.4 MG PO; GLIMEPIRIDE2 MG PO; HYDRALAZINE HCL25 MG PO; INDOMETHACIN50 MG PO; LISINOPRIL10 MG PO; METFORMIN HCL500 MG PO; NEPHRO-VITE TABL1 EA PO; PLAVIX75 MG PO; SIMVASTATIN20 MG PO; SYNTHROID50 MCG PO; TYLENOL WITH C1 EACH PO; VOLTAREN100 GM TD; ZOLOFT50 MG
[2020-09-26 10:19] LABS: BASOPHILS # (AUTO) 0.1 (0.0-0.1); BASOPHILS % 0.2 % (0.0-1.0); EOSINOPHILS # (AUTO) 0.1 (0.0-0.4); EOSINOPHILS % 0.4 % (0.0-6.0); HEMATOCRIT 26.8 % (38.2-49.6); LYMPHOCYTES # (AUTO) 1.3 (1.0-3.2); LYMPHOCYTES % 3.9 % (18.0-39.1); MEAN CORPUSCULAR HEMOGLOBIN 25.2 pg (28-32); MEAN CORPUSCULAR HGB CONC 29.9 g/dL (31-35); MEAN CORPUSCULAR VOLUME 84.3 fL (81-99); MONOCYTES # (AUTO) 1.2 (0.2-0.8); MONOCYTES % 3.7 % (4.4-11.3); NEUTROPHILS # (AUTO) 28.3 (2.1-6.9); NEUTROPHILS % 88.5 % (38.7-80.0); PLATELET COUNT 330 x10e3/uL (140-360); RED BLOOD COUNT 3.18 x10e6/uL (4.3-5.7); RED CELL DISTRIBUTION WIDTH 17.4 % (11.7-14.4)
[2020-09-26 10:39] LABS: ALBUMIN 2.8 g/dL (3.5-5.0); ALBUMIN/GLOBULIN RATIO 0.9 (0.8-2.0); ANION GAP 17.6 mmol/L (8-16); CALCIUM 8.3 mg/dL (8.4-10.2); CREATININE, SERUM 1.39 mg/dL (0.72-1.25); POTASSIUM 4.6 mmol/L (3.5-5.1)
[2020-09-26 10:45] LABS: CREATINE KINASE MB 0.9 ng/mL (0-5.0)
[2020-09-26 11:21] LABS: ELLIPTOCYTE, RBC SLIGHT; EOSINOPHILS % (MANUAL) 1 % (0-7); LYMPHOCYTES % (MANUAL) 1 % (19-48); METAMYELOCYTES % (MANUAL) 1 % (0-0); MONOCYTES % (MANUAL) 7 % (3.4-9.0); NEUTROPHILS % (MANUAL) 90 % (40-74); PLATELET ESTIMATE ADEQUATE; TEAR DROP CELLS FEW
[2020-09-26 11:22] LABS: OVALOCYTES FEW; PLATELET MORPHOLOGY COMMENT FEW LARGE; RBC MORPHOLOGY COMMENT ABNORMAL
[2020-09-26] MEDS ORDERED: IOPAMIDOL 370 MG/ML 200 ML INFUS..BTL INJ ONE (12:25)
[2020-09-26] MEDS ORDERED: SODIUM CHLORIDE 0.9% 50ML 50 ML ONE (12:25)
[2020-09-26] MEDS ORDERED: CEFEPIME 1GM/NS 0.9% 50 ML 50 ML IV SCH (12:41)
[2020-09-26] MEDS ORDERED: VANCOMYCIN 1GM/NS 250 ML 250 ML IV STA (12:41)
[2020-09-26 15:52] VITALS: BP 126/53
== END 2020-09-26 17:16 | disposition other institution (70) ==
LOC: ER 10:00
DX: G95.89 Other specified diseases of spinal cord (principal); I10 Essential (primary) hypertension; E11.9 Type 2 diabetes mellitus without complications; E78.5 Hyperlipidemia, unspecified; E03.9 Hypothyroidism, unspecified; M10.9 Gout, unspecified; Z95.5 Presence of coronary angioplasty implant and graft
CPT/HCPCS: 36415; 70450; 70496; 71045; 72129; 72132; 80053; 82550; 82553; 83880; 84484; 85025; 87040; 93005; 99285; J0692; J3370; Q9967; U0002